=== PATIENT | male | born 1955 | race African-American/Black ===

== ENCOUNTER 2017-12-07 04:17 | Emergency (ER) | payer OTHER ==
[~2017-12-07] VITALS: Ht 185.4 cm; Wt 106.6 kg
[2017-12-07] MEDS ORDERED: TENORMIN25 MG ORAL (04:28)
[2017-12-07] MEDS ORDERED: LISINOPRIL40 MG ORAL (04:28)
[2017-12-07] MEDS ORDERED: ANUSOL-HC25 MG RECTAL (04:45)
[2017-12-07] MEDS ORDERED: COLACE100 MG ORAL (04:45)
[2017-12-07] MEDS ORDERED: MAGNESIUM CITR296 M1 PO (04:45)
[2017-12-07 04:52] VITALS: BP_SYST 150; BP_SYST 154; BP_DIAS 98
--- NOTE | 2017-12-07 05:24 | Emergency Room Report ---
History of Present Illness General Chief Complaint: General Complaint Source: Patient Present Illness HPI 62-year-old male presents ED for evaluation. Complaining of rectal pain 2 days. States that he's been experiencing trouble with his bowel movements and he has been straining which is causing his rectal pain. States he applied Preparation H ointment tonight. Pain is burning, 9 out of 10, nonradiating. Denies any abdominal pain. Denies any nausea or vomiting. Denies any blood in his stool. No other aggravating or relieving factors. Denies any other associated symptoms Allergies: Coded Allergies: No Known Allergies (Unverified , 12/07/17) Patient History Past Medical History: DM, HTN Past Surgical History: none Pertinent Family History: none Social History: Denies: smoking, alcohol use, drug use Immunizations: UTD Reviewed Nursing Documentation: PMH: Agreed, PSxH: Agreed Nursing Documentation-PMH Hx Hypertension: Yes Hx Diabetes: Yes - BORDERLINE Review of Systems All Other Systems: negative except mentioned in HPI Physical Exam Vital Signs Date Time Temp Pulse Resp B/P (MAP) Pulse Ox O2 Delivery O2 Flow Rate FiO2 12/07/17 04:21 97.5 79 16 154/98 97 Room Air 97.5 Sp02 EP Interpretation: reviewed, normal General Appearance: no apparent distress, alert, GCS 15, non-toxic Head: normocephalic Eyes: bilateral eye normal inspection, bilateral eye PERRL ENT: normal ENT inspection Neck: normal inspection Respiratory: normal inspection Cardiovascular #1: normal inspection Gastrointestinal: normal inspection Rectal: hemorrhoids Genitourinary: no CVA tenderness Musculoskeletal: normal inspection Neurologic: alert, oriented x3, responsive, motor strength/tone normal, sensory intact, speech normal Psychiatric: normal inspection Skin: normal inspection Lymphatic: normal inspection Medical Decision Making Diagnostic Impression: Primary Impression: Hemorrhoids Qualified Codes: K64.9 - Unspecified hemorrhoids ER Course Hospital Course 62-year-old male presents ED with rectal pain Differential diagnoses include: internal hemorrhoids, external hemorrhoids, anal fissure, constipation Clinical course Patient placed on stretcher in ED. After initial history physical exam reveals an elderly male in no acute distress. Upon rectal exam there is good rectal tone however there is fullness on rectal exam. no anal fissure. no gross blood. Findings consistent with hemorrhoids. Discussed with patient. Recommend suppository, stool softeners. Close follow-up with PMD Diagnosis - hemorrhoids Stable and discharged to home with prescription for Anusol suppository, Colace, magnesium citrate. Instructed to take warm soaks in top 3 times a day for 10- 15 minutes. Patient instructed to followup with PMD. Patient instructed to return to ED if symptoms recur or worsen Last Vital Signs Date Time Temp Pulse Resp B/P (MAP) Pulse Ox O2 Delivery O2 Flow Rate FiO2 12/07/17 04:52 97.5 80 16 154/98 97 Room Air 97.5 Status: improved Disposition: HOME, SELF-CARE Condition: Stable Scripts Magnesium Citrate (MAGNESIUM CITRATE) 296 Ml Solution 150 ML PO DAILY for 2 Days, #296 ML Prov: HORACIO ACOSTA M.D. 12/07/17 Hydrocortisone Acetate* (ANUSOL-HC*) 25 Mg Supp.rect 1 SUPP RECTAL TWICE A DAY for 5 Days, SUPP Prov: HORACIO ACOSTA M.D. 12/07/17 Docusate Sodium* (COLACE*) 100 Mg Capsule 100 MG ORAL THREE TIMES A DAY, #30 CAP Prov: HORACIO ACOSTA M.D. 12/07/17 Referrals: [facility],REFERRING (PCP) Patient Instructions: Hemorrhoids, [id number] HORACIO ACOSTA M.D. Dec 07, 2017 05:24
== END 2017-12-07 04:53 | disposition home or self-care (01) ==
LOC: EMR 04:46
DX: K64.9 Unspecified hemorrhoids (principal); E11.9 Type 2 diabetes mellitus without complications; I10 Essential (primary) hypertension
CPT/HCPCS: 99284

== ENCOUNTER 2017-12-26 20:30 | Emergency (ER) | payer OTHER ==
[~2017-12-26] VITALS: Ht 185.4 cm; Wt 105.7 kg
[~2017-12-26 20:30] MED LIST: ANUSOL-HC25 MG RECTAL; COLACE100 MG ORAL; LISINOPRIL40 MG ORAL; MAGNESIUM CITR296 M1 PO; TENORMIN25 MG ORAL
[2017-12-26 21:03] VITALS: BP 176/85
[2017-12-26] MEDS ORDERED: HYDROcodone/Acetamin 10/325 tab ORAL ONE (21:15)
[2017-12-26] MEDS ORDERED: NORCO 5-325 TA1 EACH ORAL (21:19)
[2017-12-26] MEDS ORDERED: AMERICAINE28 G1 TP (21:19)
[2017-12-26 21:31] VITALS: BP 154/80
--- NOTE | 2017-12-26 21:33 | Emergency Room Report ---
History of Present Illness General Chief Complaint: Pain Source: Patient Present Illness HPI 62-year-old male, presenting with rectal pain for the last 2-3 weeks. States that he has rectal pain intermittently, but worse with defecation. States that he has hard stool despite taking stool softeners. No blood in the stool. His last colonoscopy was 3 years ago was told that he has a polyp. He is released in racing the ER and got medications for hemorrhoids Allergies: Coded Allergies: No Known Allergies (Unverified , 12/07/17) Patient History Past Medical History: see triage record Past Surgical History: none Pertinent Family History: none Reviewed Nursing Documentation: PMH: Agreed; PSxH: Agreed Nursing Documentation-PMH Hx Hypertension: Yes Hx Diabetes: Yes - BORDERLINE Review of Systems All Other Systems: negative except mentioned in HPI Physical Exam Vital Signs Date Time Temp Pulse Resp B/P (MAP) Pulse Ox O2 Delivery O2 Flow Rate FiO2 12/26/17 20:33 98.0 74 14 176/85 99 Room Air 98.1 Sp02 EP Interpretation: reviewed, normal General Appearance: alert, GCS 15, non-toxic, mild distress Head: normocephalic, atraumatic Eyes: bilateral eye normal inspection, bilateral eye PERRL, bilateral eye EOMI ENT: normal ENT inspection, normal pharynx, normal voice, moist mucus membranes Neck: normal inspection, full range of motion, supple Respiratory: normal inspection, lungs clear, normal breath sounds, no respiratory distress, no retraction, no wheezing, speaking full sentences, chest symmetrical Cardiovascular #1: normal inspection, regular rate, rhythm, no edema, normal capillary refill Cardiovascular #2: 2+ radial (R), 2+ radial (L) Gastrointestinal: normal inspection, non tender, soft, non-distended, no guarding Rectal: normal rectal tone, tenderness, other - Internal hemorrhoids, no large/ tense hemorrhoid palpated, all soft, no blood Genitourinary: no CVA tenderness Musculoskeletal: normal inspection, back normal, normal range of motion, non- tender Neurologic: normal inspection, alert, oriented x3, responsive, motor strength/ tone normal, sensory intact, normal gait, speech normal Psychiatric: normal inspection, judgement/insight normal, memory normal Skin: normal inspection, normal color, no rash, warm/dry, well hydrated, normal turgor Medical Decision Making Diagnostic Impression: Primary Impression: Internal hemorrhoids Additional Impression: Rectal pain ER Course 62-year-old male with rectal pain for 3 weeks DDX: Denies any possibility or history of STDs Likely internal hemorrhoids, negative exam for thrombosed hemorrhoid Plan: Pain control ER course: Patient has remained stable during ED stay. Disposition: Patient is to be discharged to home. Prescriptions given are Americaine, [place]. Also instructed to take fiber pills Patient is instructed to follow up with gastroenterology in one week Strict return precautions discussed with patient such as fever, chills, worsening/severe pain, bloody stool, nausea, vomiting, which may indicate severe illness. Patient verbalizes understanding and agrees with plan. Please note that this Emergency Department Report was dictated using [employer] cleaner technology software, occasionally this can lead to erroneous entry secondary to interpretation by the dictation equipment Last Vital Signs Date Time Temp Pulse Resp B/P (MAP) Pulse Ox O2 Delivery O2 Flow Rate FiO2 12/26/17 21:03 98.1 14 176/85 99 Room Air 98.1 12/26/17 20:33 74 Disposition: HOME, SELF-CARE Condition: Improved Scripts Benzocaine (AMERICAINE) 28 Gm Oint...g. 28 GM TP FIVE TIMES A DAY, #1 TUBE Prov: Jeb Macdonald M.D. 12/26/17 Hydrocodone Bit/Acetaminophen 5-325* (NORCO 5-325*) 1 Each Tablet 1 TAB ORAL Q6H PRN for For Pain, #20 TAB 0 Refills Prov: Jeb Macdonald M.D. 12/26/17 Patient Instructions: Hemorrhoids, [id number] Additional Instructions: PLEASE SEE A GARMENT TAG STRINGER IN 1 WEEK Jeb Macdonald M.D. Dec 26, 2017 21:33
== END 2017-12-26 21:34 | disposition home or self-care (01) ==
LOC: EMR 21:00
DX: K64.8 Other hemorrhoids (principal); I10 Essential (primary) hypertension
CPT/HCPCS: 99284

== ENCOUNTER 2018-11-17 04:14 | Emergency (ER) | payer MEDICAID, OTHER ==
[~2018-11-17] VITALS: Ht 185.4 cm; Wt 102.1 kg
[~2018-11-17 04:14] MED LIST changes: +AMERICAINE28 G1 TP; +NORCO 5-325 TA1 EACH ORAL
--- NOTE | 2018-11-17 04:42 | NUR ---
ED Nurse Note: Patient presents with complaints of muscular abdominal pain x 1 week 8-06/09. diffused rash at right abdomen to right flank and back noted.
[2018-11-17 04:43] VITALS: BP 149/89
--- NOTE | 2018-11-17 04:53 | Emergency Room Report ---
History of Present Illness General Chief Complaint: Abdominal Pain Source: Patient Present Illness HPI Patient is a 63-year-old male presented after increased right lower abdominal pain. Patient was noted to have gradual onset of pain. He denies any vomiting. He reports having prior history of diabetes. Patient reports having worsened pain with supine position. Patient reports having recently been started on Flexeril as well as ibuprofen. He reports having prior history of hypertension. He denies any hematuria or bloody stools. Patient states he had prior history of prostate cancer and had prostate removal. He denies any fever. He reports having used a heating pad and subsequently left this on too long and developed a rash subsequently. Allergies: Coded Allergies: No Known Allergies (Unverified , 12/07/17) Patient History Past Medical History: see triage record Reviewed Nursing Documentation: PMH: Agreed; PSxH: Agreed Nursing Documentation-PMH Hx Hypertension: Yes Hx Diabetes: Yes - BORDERLINE Review of Systems All Other Systems: negative except mentioned in HPI Physical Exam Vital Signs Date Time Temp Pulse Resp B/P (MAP) Pulse Ox O2 Delivery O2 Flow Rate FiO2 11/17/18 04:27 98.2 64 14 149/89 99 Room Air Sp02 EP Interpretation: reviewed, normal General Appearance: normal inspection, well appearing, no apparent distress, alert, GCS 15 Head: atraumatic ENT: normal ENT inspection, hearing grossly normal, normal voice Neck: normal inspection, full range of motion, supple, no bony tend Respiratory: normal inspection, lungs clear, normal breath sounds, no respiratory distress, no retraction, no wheezing Cardiovascular #1: regular rate, rhythm, no edema Gastrointestinal: normal inspection, normal bowel sounds, non tender, soft, no guarding, no hernia Genitourinary: no CVA tenderness Musculoskeletal: normal inspection, back normal, normal range of motion Neurologic: normal inspection, alert, responsive, speech normal Psychiatric: normal inspection, judgement/insight normal, mood/affect normal Skin: other - vesicular rash to right lower abdomen dermatomal distribution Medical Decision Making Diagnostic Impression: Primary Impression: Shingles Additional Impressions: Spondylosis Lymphadenopathy ER Course Patient presented for right lower abdominal pain. Differential diagnosis include was not limited to fracture, appendicitis, stone, spinal stenosis, hernia among others. Because of complexity of patient's case laboratory testing and imaging studies were ordered.Laboratory testing was unremarkable CT imaging of the abdomen pelvis read by radiology showed spondylosis in the lumbar spine with some right lower quadrant lymphadenopathy. Patient was noted to have postsurgical changes. Patient was a file advised to follow-up with his urologist. Patient skin changes to his lower abdomen appear to be consistent with shingles and patient was therefore given prescription for acyclovir. Patient was advised to recheck in the next few days. He is advised to return if any worsening of condition or increased fever or other concerns. Labs Test 11/17/18 05:10 11/17/18 05:17 White Blood Count 4.1 K/UL (4.8-10.8) Red Blood Count 4.51 M/UL (4.70-6.10) Hemoglobin 13.5 G/DL (14.2-18.0) Hematocrit 39.8 % (42.0-52.0) Mean Corpuscular Volume 88 FL (80-99) Mean Corpuscular Hemoglobin 29.9 PG (27.0-31.0) Mean Corpuscular Hemoglobin Concent 33.9 G/DL (32.0-36.0) Red Cell Distribution Width 12.2 % (11.6-14.8) Platelet Count 193 K/UL (150-450) Mean Platelet Volume 6.4 FL (6.5-10.1) Neutrophils (%) (Auto) 50.0 % (45.0-75.0) Lymphocytes (%) (Auto) 32.1 % (20.0-45.0) Monocytes (%) (Auto) 13.7 % (1.0-10.0) Eosinophils (%) (Auto) 2.6 % (0.0-3.0) Basophils (%) (Auto) 1.5 % (0.0-2.0) Sodium Level 140 MMOL/L (136-145) Potassium Level 3.6 MMOL/L (3.5-5.1) Chloride Level 103 MMOL/L (98-107) Carbon Dioxide Level 30 MMOL/L (21-32) Anion Gap 7 mmol/L (5-15) Blood Urea Nitrogen 18 mg/dL (7-18) Creatinine 1.3 MG/DL (0.55-1.30) Estimat Glomerular Filtration Rate > 60 mL/min (>60) Glucose Level 128 MG/DL (74-106) Calcium Level 9.0 MG/DL (8.5-10.1) Total Bilirubin 0.6 MG/DL (0.2-1.0) Aspartate Amino Transf (AST/SGOT) 12 U/L (15-37) Alanine Aminotransferase (ALT/SGPT) 19 U/L (12-78) Alkaline Phosphatase 67 U/L (46-116) Troponin I 0.000 ng/mL (0.000-0.056) Total Protein 7.3 G/DL (6.4-8.2) Albumin 3.3 G/DL (3.4-5.0) Globulin 4.0 g/dL Albumin/Globulin Ratio 0.8 (1.0-2.7) Lipase 81 U/L (73-393) Urine Color Pale yellow Urine Appearance Clear Urine pH 7 (4.5-8.0) Urine Specific [place] 1.010 (1.005-1.035) Urine Protein Negative (NEGATIVE) Urine Glucose (UA) Negative (NEGATIVE) Urine Ketones Negative (NEGATIVE) Urine Blood 5+ (NEGATIVE) Urine Nitrite Negative (NEGATIVE) Urine Bilirubin Negative (NEGATIVE) Urine Urobilinogen Normal MG/DL (0.0-1.0) Urine Leukocyte Esterase Negative (NEGATIVE) Urine RBC 40-60 /HPF (0 - 0) Urine WBC 0 /HPF (0 - 0) Urine Squamous Epithelial Cells None /LPF (NONE/OCC) Urine Bacteria Few /HPF (NONE) Last Vital Signs Date Time Temp Pulse Resp B/P (MAP) Pulse Ox O2 Delivery O2 Flow Rate FiO2 11/17/18 04:43 64 14 Room Air 11/17/18 04:43 98.2 149/89 99 Status: improved Disposition: HOME, SELF-CARE Condition: Stable Scripts Hydrocodone Bit/Acetaminophen 5-325* (NORCO 5-325*) 1 Each Tablet 1 TAB ORAL Q6H PRN for For Pain, #20 TAB 0 Refills Prov: Andrea Alvarez MD 11/17/18 Acyclovir* (ZOVIRAX*) 800 Mg Tablet 800 MG ORAL FIVE TIMES A DAY, #35 TAB Prov: Andrea Alvarez MD 11/17/18 Referrals: [facility],REFERR[facility] (PCP) Andrea Alvarez MD Nov 17, 2018 04:52
[2018-11-17] MEDS ORDERED: Isovue-300 100ml vial INJ PRN (05:00)
[2018-11-17] MEDS ORDERED: Ketorolac 30mg Inj IV ONE (05:00)
--- NOTE | 2018-11-17 05:30 | NUR ---
ED Nurse Note: labs drawn, urine collected, Iv started at right AC 20G. Patient signed consent form for Ct contrast. Patient reports no pain at this time vital signs are within normal limits.
[2018-11-17 05:33] LABS: APPEARANCE,URINE CLEAR; BILIRUBIN, URINE NEGATIVE (NEGATIVE); COLOR,URINE PALE YELLOW; GLUCOSE, URINE (UA) NEGATIVE (NEGATIVE); KETONES,URINE NEGATIVE (NEGATIVE); LEUKOCYTE ESTERASE ,URINE NEGATIVE (NEGATIVE); NITRITE,URINE NEGATIVE (NEGATIVE); PH,URINE 7 (4.5-8.0); PROTEIN,URINE NEGATIVE (NEGATIVE); UROBILINOGEN,URINE NORMAL MG/DL (0.0-1.0)
[2018-11-17 05:33] LABS: BASOPHILS % (AUTO) 1.5 % (0.0-2.0); EOSINOPHILS % (AUTO) 2.6 % (0.0-3.0); HEMATOCRIT 39.8 % (42.0-52.0); HEMOGLOBIN 13.5 G/DL (14.2-18.0); LYMPHOCYTES % (AUTO) 32.1 % (20.0-45.0); MEAN CORPUSCULAR VOLUME 88 FL (80-99); MONOCYTES % (AUTO) 13.7 % (1.0-10.0); PLATELET COUNT 193 K/UL (150-450); RED BLOOD COUNT 4.51 M/UL (4.70-6.10); RED CELL DISTRIBUTION WIDTH 12.2 % (11.6-14.8); WHITE BLOOD COUNT 4.1 K/UL (4.8-10.8)
[2018-11-17 05:36] LABS: ANION GAP 7 mmol/L (5-15); BLOOD UREA NITROGEN 18 mg/dL (7-18); CARBON DIOXIDE 30 MMOL/L (21-32); CHLORIDE 103 MMOL/L (98-107); CREATININE 1.3 MG/DL (0.55-1.30); POTASSIUM 3.6 MMOL/L (3.5-5.1); SODIUM 140 MMOL/L (136-145)
[2018-11-17 05:41] LABS: ALANINE AMINOTRANSFERASE 19 U/L (12-78); ALBUMIN 3.3 G/DL (3.4-5.0); ALBUMIN/GLOBULIN RATIO 0.8 (1.0-2.7); ALKALINE PHOSPHATASE 67 U/L (46-116); ASPARTATE AMINO TRANSFERASE 12 U/L (15-37); BILIRUBIN,TOTAL 0.6 MG/DL (0.2-1.0)
--- NOTE | 2018-11-17 05:50 | NUR ---
ED Nurse Note: Patient went down for CT.
[2018-11-17] MEDS ORDERED: ACYCLOVIR800 MG ORAL (06:51)
[2018-11-17] MEDS ORDERED: NORCO 5-325 TA1 EACH ORAL (06:51)
--- NOTE | 2018-11-17 07:14 | NUR ---
ER DISCHARGE NOTE: Patient is cleared to be discharged per ERMD, pt is aox4, on room air, with stable vital signs. pt was given dc and prescription instructions, pt was able to verbalize understanding, pt id band and iv site removed without complications. pt is able to ambulate with steady gait. pt took all belongings. Deena escorted to discharge desk for signatures.
[2018-11-17 07:15] VITALS: BP 135/88
--- NOTE | 2018-11-17 10:12 | Diagnostic Imaging Report ---
Indication: Abdominal pain Technique: Continuous helical transaxial imaging of the abdomen and pelvis was obtained from the lung bases to the pubic symphysis during intravenous contrast administration. Coronal 2-D reformats were also obtained. Study obtained in a Siemens sensation [address] Automatic Exposure Control was utilized. Total Dose length Product (DLP): 745.[address] Dose Index Volume (CTDIvol): 14.36 mGy Comparison: None Findings: The lung bases are clear. The gallbladder is unremarkable. Hypodensities in the kidneys likely cystic though some are too small to characterize. The appendix is normal. There is no free fluid or free air. Small inguinal nodes are present bilaterally nonspecific. Surgical clips in the area of the prostate gland noted. Scarring in the low anterior abdominal wall demonstrated likely from prior surgery. Arterial calcifications noted within the aorta. Mild degenerative changes of the lumbar spine demonstrated at L4-5 and L5-S1 especially. IMPRESSION: No acute findings appreciated. Status post prostatectomy. Bilateral inguinal nodes nonspecific. Correlate clinically. Degenerative changes of the lower lumbar spine Multiple bilateral renal hypodensities some definitely cystic while others are too small to characterize. [facility] has communicated the preliminary results to the Emergency Department. Their findings are largely concordant with this report. The CT scanner at [facility] is accredited by the [employer] and the scans are performed using dose optimization techniques as appropriate to a performed exam including Automatic Exposure control.
== END 2018-11-17 13:16 | disposition home or self-care (01) ==
LOC: EMR 04:47
DX: B02.9 Zoster without complications (principal); M47.9 Spondylosis, unspecified; R59.1 Generalized enlarged lymph nodes; I10 Essential (primary) hypertension; R73.03 Prediabetes; Z85.46 Personal history of malignant neoplasm of prostate
CPT/HCPCS: 36415; 74177; 80053; 81003; 83690; 84484; 85025; 99284; J1885; Q9967